=== PATIENT | male | born 1965 | race Native Hawaiian/Other Pacific Islander ===

== ENCOUNTER 2022-08-14 21:56 | Emergency (ER) | payer BC ==
[~2022-08-14] VITALS: Ht 175.3 cm; Wt 145.2 kg
[2022-08-14 22:49] LABS: PLATELET COUNT 150 K/uL (142-355)
[2022-08-14 22:51] LABS: POTASSIUM 3.7 mmol/L (3.6-5.2)
[2022-08-15 00:56] VITALS: BP 134/74; TEMP 98.6
== END 2022-08-15 00:56 | disposition home or self-care (01) ==
LOC: ED 21:56
PROVIDERS: Emergency Medicine Emergency Medical Services
DX: R42 Dizziness and giddiness (principal); I10 Essential (primary) hypertension
CPT/HCPCS: 36415; 80053; 80307; 81002; 84484; 85027; 93005; 96374; 99284; J3490

== ENCOUNTER 2022-08-21 14:46 | Outpatient (CLI) | payer BC ==
[~2022-08-21] VITALS: Ht 172.7 cm; Wt 81.6 kg
[2022-08-21 14:54] VITALS: BP 143/87; TEMP 98.3
[2022-08-21 15:57] LABS: PLATELET COUNT 198 K/uL (142-355)
[2022-08-21 16:10] LABS: POTASSIUM 4.2 mmol/L (3.6-5.2)
[2022-08-21 20:30] VITALS: BP 140/72; TEMP 97
== END 2022-08-21 19:32 | disposition home or self-care (01) ==
LOC: INF 14:46
PROVIDERS: ATTEND Family Medicine
DX: E86.0 Dehydration (principal)
CPT/HCPCS: 36591; 80053; 83036; 85027; 96360; 96361

== ENCOUNTER 2023-05-04 08:02 | Outpatient (CLI) | payer BC | END 2023-05-04 18:52 | disposition home or self-care (01) | LOC: CT 08:02 | PROVIDERS: ATTEND Family Medicine | DX: K42.9 Umbilical hernia without obstruction or gangrene (principal) | CPT/HCPCS: 36415; 82565; 84520; Q9963 ==